=== PATIENT | female | born 2000 | race Caucasian/White ===

== ENCOUNTER 2024-01-15 08:44 | Emergency (ER) | payer SELFPAY ==
[~2024-01-15] VITALS: Ht 149.9 cm; Wt 63.6 kg
[2024-01-15 08:50] VITALS: TEMP 98.1
[2024-01-15 09:57] VITALS: BP 138/91; PULSE 89
== END 2024-01-15 09:57 | disposition home or self-care (01) ==
LOC: COL.ER 08:44
DX: S96.911A Strain of unspecified muscle and tendon at ankle and foot level, right foot, initial encounter (principal); X50.1XXA Overexertion from prolonged static or awkward postures, initial encounter; Y93.01 Activity, walking, marching and hiking
CPT/HCPCS: 31865; L4386